=== PATIENT | female | born 1965 | race Caucasian/White ===

== ENCOUNTER 2020-03-21 08:40 | Outpatient (REF) | payer BC, SELFPAY ==
[2020-03-21 11:27] LABS: Hematocrit 38.2 % (37-47); Hemoglobin 12.5 g/dl (12.0-16.0); Mean Corpuscular HGB Conc 32.7 g/dl (31.0-35.0); Mean Corpuscular Volume 91.8 fL (80-98); Mean Platelet Volume 12.9 fL (9.4-12.3); Platelet Count 182 X10*3/uL (160-400); Red Blood Count 4.16 X10*6/uL (4.20-5.50); Red Cell Distribution Width 12.4 % (11.0-16.0); White Blood Count 4.1 X10*3/uL (4.8-10.8)
[2020-03-21 11:47] LABS: Alanine Aminotransferase 13 U/L (0-31); Albumin Level 4.3 g/dL (3.5-5.0); Alkaline Phosphatase 54 U/L (39-117); Anion Gap 12 (12-20); Aspartate Amino Transferase 18 U/L (5-31); Bilirubin Total 1.4 mg/dL (0.0-1.0); Blood Urea Nitrogen 13 mg/dL (9-16); Calcium 9.4 mg/dL (8.4-10.2); Carbon Dioxide 29 mmol/L (22-29); Chloride 103 mmol/L (96-108); Cholesterol 219 mg/dL; Estimated Glomerular Filt Rate > 60; Glucose Fasting 81 mg/dL (60-99); HDL Cholesterol 81 mg/dL; LDL Cholesterol Calculated 127 mg/dl; Potassium 4.2 mmol/l (3.3-5.1); Sodium 140 mmol/L (135-145); Total Protein 6.7 g/dL (6.5-8.0); Triglycerides 58 mg/dL
[2020-03-21 12:04] LABS: Thyroid Stimulating Hormone 2.25 mIU/mL (0.32-4.0)
[2020-03-22 18:51] LABS: Follicle Stimulating Hormone 109.7 mIU/mL
== END 2020-03-21 08:41 | disposition home or self-care (01) ==
LOC: HO.HMGCLDS 08:40
PROVIDERS: PCP Internal Medicine; Visit Provider Internal Medicine
DX: Z78.0 Asymptomatic menopausal state (principal); Z00.00 Encounter for general adult medical examination without abnormal findings; Z13.9 Encounter for screening, unspecified
CPT/HCPCS: 36415; 80053; 80061; 83001; 84443; 85027

== ENCOUNTER 2023-06-09 12:27 | Outpatient (AMB) | payer BC, SELFPAY ==
--- NOTE | 2023-06-09 12:46 | A.OFFPC_ITS ---
Vital Signs 06/09/23 12:47 Height 5 ft 3.5 in Weight 161 lb BMI 28.1 BP 110/70 Blood Pressure Location Rt brachial Position Sitting Pulse 72 Pulse Source Pulse Oximeter Pulse Oximetry (%) 97 Oxygen Delivery Method Room Air Intake Visit Reasons: Referral Intake Note: Pt is here today for a follow up visit. Pt states that she has been having headaches daily for about a month. Pt states that she had Covid and since then she has been getting headaches. Allergies No Known Allergies Allergy (Verified 06/09/23 12:54) Tobacco use date assessed: 06/09/23 Dental Screening Dental Screen Date: 06/09/23 Did you have a dental visit in the last 12 months?: Yes Did you have a dental problem in the last 6 months where you did not have access to dental care?: No Was dental information given to patient?: Patient has dentist HPI Referral HPI Details Patient presents for a physical. She complains of daily headaches for the last month frontal and both amish region are worse in the end of the day. Patient denies nausea vomiting change in vision weakness or numbness in extremities change in balance. She had normal exam 6 months ago. Patient will have a knee replacement surgery in July for advanced osteoarthritis. Patient has been under stress due to financial difficulty. Patient quited her job 2 years ago because of advanced arthritis and she worked outside for [employer]. 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 Patient has been on hormonal replacement for the last 6 months for symptomatic menopause. She has been taking Effexor for the last 9 months because emotional difficulties during the menopause. Patient denies depression or anxiety and her sleep difficulties improved on the hormonal replacement. [facility] Medical History (Updated 06/09/23 @ 13:31 by Eliza Swain MD) Menopause Annual physical exam Normal Pap smear Mammogram normal Normal colonoscopy Surgical History (Updated 03/19/20 @ 12:45 by GENA Quan, [facility]) History of arthroscopic knee surgery History of foot surgery Family History (Updated 06/09/23 @ 12:58 by GENA Fu) Father HTN (hypertension) Diabetes mellitus Mother No problems noted. Brother No problems noted. Sister No problems noted. Sister No problems noted. Daughter No problems noted. Social History (Updated 03/21/20 @ 08:12 by Katia Owens RN) Housing: House Patient Tobacco Use Status: Never used Tobacco e-Cigarette/Vaping Use: Never Used Current occupational status: unemployed Cognitive needs: No Hearing needs: No Vision needs: Yes Questionnaire PHQ-9 Over the last 2 weeks, how often have you been bothered by any of the following problems? 1. Little interest or pleasure in doing things: not at all 2. Feeling down, depressed, or hopeless: not at all 3. Trouble falling or staying asleep, or sleeping too much: several days 4. Feeling tired or having little energy: not at all 5. Poor appetite or overeating: not at all 6. Feeling bad about yourself - or that you are a failure or have let yourself or your family down: not at all 7. Trouble concentrating on things, such as reading the newspaper or watching television: not at all 8. Moving or speaking so slowly that other people could have noticed. Or the opposite - being so fidgety or restless that you have been moving around a lot more than usual: not at all 9. Thoughts that you would be better off or of hurting yourself in some way: not at all Total score: 1 Depression Screening Interpretation: Negative Depression Screening Done: Yes Source: Developed by Drs. Jose Garcia, Rhiannon Newsome, Loc Zafar and colleagues, with an educational zeke from [employer]. Thrive Questionnaire Date Thrive assessed: 06/09/23 I am a: Patient What is your living situation today?: I have a steady place to live Within the past 12 months, did the food you bought not last and you didn't have the money to get more?: Never true Within the past 12 months, did you worry whether your food would run out before you got money to buy more?: Never true Do you have trouble paying for medicines?: No Do you have trouble getting transportation to medical appointments?: No Do you have trouble paying your heating and electricity bill?: No Do you have trouble taking care of your child, family member or friend?: No Do you have trouble with day-to-day activities such as bathing, preparing meals, shopping, managing finances, etc.?: No Are you currently unemployed and looking for a job?: No Are you interested in more education?: No Please select the resources that you would like help with: None Currently or been in a relationship where the following occur: no concerns reported AUDIT C Alcohol Use Questionnaire (AUDIT-C) 1. How often do you have a drink containing alcohol?: 2-4 times a month 2. How many drinks containing alcohol do you have on a typical day when you are drinking?: 1 or 2 3. How often do you have six or more drinks on one occasion?: Never Total Score: 2 LESTER-7 AMB Questionnaire LESTER-7 Date LESTER - 7 assessed: 06/09/23 Feeling nervous, anxious, or on edge: 0 = Not at all Not being able to stop or control worryin = Several days Worrying too much about different things: 0 = Not at all Trouble relaxin = Not at all Being so restless that it is hard to sit still: 0 = Not at all Becoming easily annoyed or irritable: 0 = Not at all Feeling afraid as if something awful might happen: 0 = Not at all Total LESTER-7 score (0-4 normal; 5-9 mild; 10-14 moderate; 15-21 severe): 1 Source: Developed by Drs. Jose Garcia, Rhiannon Newsome, Loc Zafar and colleagues, with an educational zeke from [employer]. Review of Systems Const All systems reviewed & are unremarkable except as noted in HPI and below Reports no additional complaints Eyes Reports no additional complaints ENT Reports no additional complaints Card Reports no additional complaints Resp Reports no additional complaints GI Reports no additional complaints Reports no additional complaints Physical exam (Primary Care) Vital Signs: Last Vital Signs Pulse 72 06/09/23 12:47 BP 110/70 06/09/23 12:47 Pulse Ox 97 06/09/23 12:47 Oxygen Delivery Method Room Air 06/09/23 12:47 BMI result Body Mass Index 28.1 Tobacco/Smoking Status: Tobacco use Status Tobacco use date assessed 06/09/23 06/09/23 12:59 Patient Tobacco Use Status Never used Tobacco 06/09/23 12:59 e-Cigarette/Vaping Use Never Used 06/09/23 12:59 Depression Screening Interpretation: Negative Currently or been in a relationship where the following occur: no concerns r eported Const General: no acute distress HENMT Head: Yes normal to inspection Ears: hearing grossly normal bilaterally General nose exam: Normal external nose present Face and sinus: Yes normal facial exam Mouth: Normal oral and palatal mucosa present Throat: Yes posterior oropharynx normal Eyes General: appearance normal, both eyes and all related structures Neck Neck: Yes no lymphadenopathy and Yes supple Resp Effort & Inspection: normal respiratory effort Auscultation: clear to auscultation bilaterally Cardio Rhythm: regular rhythm Heart sounds: S1 normal heart sound present and S2 normal heart sound present GI Inspection: Yes normal to inspection Palpation (GI): Soft to palpation Percussion: Yes normal to percussion Auscultation: normal bowel sounds Neuro General: CN's II-XI intact bilaterally Gait exam (Neuro): Normal gait present Motor exam (neuro): 5/5 motor strength present throughout and Pronator motor function not present Coordination: [id number] test normal Romberg Test: Negative Assessment and Plan Assessment & Plan (1) New onset headache: Code(s): R51.9 - Headache, unspecified Plan: For new onset headache CT with IV contrast will be obtained to rule brain lesion, (2) Annual physical exam: Code(s): Z00.00 - Encounter for general adult medical examination without abnormal findings Plan: Stress management increasing physical activity with balanced diet discussed with the patient. She will have a fasting blood work today. Patient was advised to taper off Venlafaxine. She will have a and needs surgery last month and will follow-up in 2-3 months Orders: Orders Complete Blood Count Auto Diff Today R51.9 - Headache, unspecified, Z00.00 - Encounter for general adult medical examination without abnormal findings Lipid Panel Today R51.9 - Headache, unspecified, Z00.00 - Encounter for general adult medical examination without abnormal findings TSH reflex Free T4 Today R51.9 - Headache, unspecified, Z00.00 - Encounter for general adult medical examination without abnormal findings CT head/brain w IV con Today R51.9 - Headache, unspecified, Z00.00 - Encounter for general adult medical examination without abnormal findings Comprehensive [place]. Panel Fast Today R51.9 - Headache, unspecified, Z00.00 - Encounter for general adult medical examination without abnormal findings Vitamin D 25-OH Total Today R51.9 - Headache, unspecified, Z00.00 - Encounter for general adult medical examination without abnormal findings Coding Level of Care Code Est Pt Prev Care 40-64y(51046) Diagnoses New onset headache R51.9 Annual physical exam Z00.00
[2023-06-09 12:47] VITALS: BP 110/70; PULSE 72; O2SAT 97; BMI 28.1
== END 2023-06-09 13:37 | disposition home or self-care (01) ==
PROVIDERS: PCP Internal Medicine; Visit Provider Internal Medicine
DX: R51.9 Headache, unspecified (principal); Z00.00 Encounter for general adult medical examination without abnormal findings
CPT/HCPCS: 99396

== ENCOUNTER 2023-06-09 13:38 | Outpatient (REF) | payer BC, SELFPAY ==
[2023-06-09 16:12] LABS: Hematocrit 37.5 % (37.0-47.0); Hemoglobin 12.2 g/dl (12.0-16.0); Mean Corpuscular HGB Conc 32.5 g/dl (31.0-35.0); Mean Corpuscular Hemoglobin 29.8 pg (27.0-33.0); Mean Corpuscular Volume 91.5 fL (80.0-98.0); Mean Platelet Volume 12.5 fL (9.4-12.3); Platelet Count 154 X10*3/uL (160-400); Red Cell Distribution Width 13.1 % (11.0-16.0); White Blood Count 4.9 X10*3/uL (4.8-10.8)
[2023-06-09 16:32] LABS: Alanine Aminotransferase 152 U/L (0-31); Albumin Level 4.1 g/dL (3.5-5.0); Alkaline Phosphatase 116 U/L (39-117); Anion Gap 12 (12-20); Aspartate Amino Transferase 129 U/L (5-31); Bilirubin Total 1.1 mg/dL (0.0-1.0); Blood Urea Nitrogen 8 mg/dL (9-16); Calcium 9.4 mg/dL (8.4-10.2); Carbon Dioxide 28 mmol/L (22-29); Chloride 104 mmol/L (96-108); Cholesterol 188 mg/dL (<200); Estimated Glomerular Filt Rate > 60; Glucose Fasting 80 mg/dL (60-99); HDL Cholesterol 52 mg/dL (>40); LDL Cholesterol Calculated 117 mg/dL (<100); Potassium 3.6 mmol/L (3.3-5.1); Sodium 140 mmol/L (135-145); Total Protein 7.2 g/dL (6.5-8.0); Triglycerides 99 mg/dL (<150)
[2023-06-09 16:48] LABS: TSH reflex Free T4 1.47 uIU/mL (0.32-4.0); Vitamin D 25-OH Total 59.1 ng/mL (>30)
[2023-06-09 17:19] LABS: Atypical Lymph Absolute Manual 1.3 x10*3/uL; Atypical Lymphs Percent Manual 26 % (0-6); Lymphocytes Absolute Manual 1.6 X10*3/uL (1.2-4.9); Lymphocytes Percent Manual 33 % (20-40); Monocytes Absolute Manual 0.1 X10*3/uL (0.1-1.2); Monocytes Percent Manual 3 % (2-11); Neutrophils Percent Manual 38 % (45-73)
[2023-06-09 17:21] LABS: RBC Morphology NORMAL; Toxic Vacuolation PRESENT
[2023-06-09 17:22] LABS: Band Neutrophils Percent 0 % (3-5); Dohle Bodies PRESENT; Neutrophils Absolute Manual 1.9 X10*3/uL (2.0-8.3); Platelet Estimate NORMAL (NORMAL); Platelet Morphology Comment NORMAL
== END 2023-06-09 13:39 | disposition home or self-care (01) ==
LOC: HO.HMGCLDS 13:38
PROVIDERS: PCP Internal Medicine; Visit Provider Internal Medicine
DX: Z00.00 Encounter for general adult medical examination without abnormal findings (principal); R51.9 Headache, unspecified
CPT/HCPCS: 36415; 80053; 80061; 82306; 84443; 85007; 85025; 85027

== ENCOUNTER 2023-07-02 07:25 | Outpatient (REF) | payer BC, SELFPAY ==
--- NOTE | ~2023-07-02 | US_ITS ---
EXAMINATION: US ABDOMEN COMPLETE CLINICAL INFORMATION: Other specified abnormal findings of blood chemistry. COMPARISON: None available. TECHNIQUE: Real-time imaging of the abdominal viscera. FINDINGS: PANCREAS: Tail obscured. ABDOMINAL AORTA: The proximal, mid, and distal segments are normal in caliber. INFERIOR VENA CAVA: Visualized portions are normal. LIVER: The liver is normal in size. The liver contour is normal. Parenchymal echogenicity is normal. No focal hepatic lesion. There is no intrahepatic biliary duct dilatation seen. GALLBLADDER: The gallbladder is physiologically distended without evidence of stones, sludge, polyps, wall thickening or pericholecystic fluid. COMMON BILE DUCT: Normal in caliber measuring 0.2 cm in diameter. RIGHT KIDNEY: No hydronephrosis. No renal calculi or focal parenchymal lesions. The kidney measures 10.3 cm in maximum dimension. LEFT KIDNEY: No hydronephrosis. No renal calculi or focal parenchymal lesions. The kidney measures 10.3 cm in maximum dimension. SPLEEN: The spleen measures 8.9 cm in maximum dimension. FREE FLUID: None. US/US abdomen complete IMPRESSION: Unremarkable abdominal ultrasound.
--- NOTE | ~2023-07-02 | CT_ITS ---
CT HEAD WITH CONTRAST CLINICAL INFORMATION: Headache. COMPARISON: None available. TECHNIQUE: Contiguous axial imaging was performed from the skull base to vertex following the administration of 85 mL of Omnipaque [address] examination was performed using dose optimization techniques as appropriate, variously including the following: *Automated exposure control *Adjustment of mA and/or kV according to patient size (this includes techniques or standardized protocols for targeted exams where dose is matched to indication/reason for exam; i.e. extremities or head) *Use of iterative reconstruction technique FINDINGS: No pathologic enhancement intracranially. There is no intracranial hemorrhage, hydrocephalus, extra-axial surface collection, midline shift, or other herniation pattern. Donato to white matter differentiation is diffusely maintained without evidence of an evolved acute territorial infarct. The basilar cisterns are preserved. No significant soft tissue abnormality. No acute osseous abnormality. The paranasal sinuses and the mastoid air cells are well aerated. CT/CT head/brain w IV con IMPRESSION: No acute intracranial findings. No pathologic enhancement intracranially.
[2023-07-02] MEDS: iohexoL 350 MG/ML 75 ML INFUS..BTL 85 ML IV (08:18)
== END 2023-07-02 07:26 | disposition home or self-care (01) ==
LOC: HO.CT 07:25
PROVIDERS: PCP Internal Medicine; Visit Provider Internal Medicine
DX: Z00.00 Encounter for general adult medical examination without abnormal findings (principal); R51.9 Headache, unspecified; R79.89 Other specified abnormal findings of blood chemistry
CPT/HCPCS: 70460; 76700; Q9967

== ENCOUNTER 2023-09-15 12:24 | Outpatient (AMB) | payer BC, SELFPAY ==
[2023-09-15 12:56] VITALS: BP 102/66; PULSE 76; O2SAT 97; BMI 27.1
--- NOTE | 2023-09-15 12:56 | A.OFFPC_ITS ---
Vital Signs 09/15/23 12:56 Height 5 ft 4 in Weight 158 lb BMI 27.1 BP 102/66 Blood Pressure Location Rt brachial Position Sitting Pulse 76 Pulse Source Pulse Oximeter Pulse Oximetry (%) 97 Oxygen Delivery Method Room Air Intake Visit Reasons: 2 Month F/U Intake Note: Pt is here today for 2 months follow up visit. Allergies No Known Allergies Allergy (Verified 09/15/23 12:58) Medication List - Last Reconciled 09/15/23 by Eliza Swain MD estradiol patches transdermal progesterone micronized 100 mg PO BEDTIME venlafaxine ER 37.5 mg PO DAILY Tobacco use date assessed: 09/15/23 Dental Screening Dental Screen Date: 06/09/23 HPI 2 Month F/U HPI Details Patient presents for the follow-up. She had a left knee replacement surgery 10 days ago and has been in physical therapy. Her daily headaches resolved. [facility] Medical History Menopause Annual physical exam Normal Pap smear Mammogram normal Normal colonoscopy Surgical History History of arthroscopic knee surgery History of foot surgery Family History Father HTN (hypertension) Diabetes mellitus Mother No problems noted. Brother No problems noted. Sister No problems noted. Sister No problems noted. Daughter No problems noted. Social History Housing: House Patient Tobacco Use Status: Never used Tobacco e-Cigarette/Vaping Use: Never Used Current occupational status: unemployed Cognitive needs: No Hearing needs: No Vision needs: Yes Questionnaire Thrive Questionnaire Date Thrive assessed: 06/09/23 LESTER-7 AMB Questionnaire LESTER-7 Date LESTER - 7 assessed: 06/09/23 Source: Developed by Drs. Jose Garcia, Rhiannon Newsome, Loc Zafar and colleagues, with an educational zeke from [employer]. Review of Systems Const All systems reviewed & are unremarkable except as noted in HPI and below Reports no additional complaints ENT Reports no additional complaints Card Reports no additional complaints Resp Reports no additional complaints GI Reports no additional complaints Reports no additional complaints Physical exam (Primary Care) Vital Signs: Last Vital Signs Pulse 76 09/15/23 12:56 BP 102/66 09/15/23 12:56 Pulse Ox 97 09/15/23 12:56 Oxygen Delivery Method Room Air 09/15/23 12:56 BMI result Body Mass Index 27.1 Tobacco/Smoking Status: Tobacco use Status Tobacco use date assessed 09/15/23 09/15/23 13:01 Patient Tobacco Use Status Never used Tobacco 09/15/23 12:56 e-Cigarette/Vaping Use Never Used 09/15/23 12:56 Thrive Assessment: Date of Thrive Assessment Date Thrive assessed 06/09/23 09/15/23 12:56 Const General: no acute distress HENMT Head: Yes normal to inspection Throat: Yes posterior oropharynx normal Resp Effort & Inspection: normal respiratory effort Auscultation: clear to auscultation bilaterally Cardio Rhythm: regular rhythm Heart sounds: S1 normal heart sound present and S2 normal heart sound present GI Inspection: Yes normal to inspection Assessment and Plan Assessment & Plan (1) Elevated LFTs: Code(s): R7 - Other specified abnormal findings of blood chemistry Plan: Patient will return in 2 months for repeated blood work and hepatitis screen for history of elevated LFTs (2) Hx of left knee surgery: Comment: replacement 09/21 Code(s): Z98.890 - Other specified postprocedural states Plan: Continue PT follow-up with ortho Orders: Orders Complete Blood Count Auto Diff 2 Months - Other specified abnormal findings of blood chemistry Lipid Panel 2 Months - Other specified abnormal findings of blood chemistry Hepatitis B,C Profile 2 Months - Other specified abnormal findings of blood chemistry Mitochondrial Antibody 2 Months - Other specified abnormal findings of blood chemistry Comprehensive [place]. Panel Fast 2 Months - Other specified abnormal findings of blood chemistry WILLIAM Reflex Titer and Pattern 2 Months - Other specified abnormal findings of blood chemistry Coding Level of Care Code Est Pt Level 3 (98275) Diagnoses Elevated LFTs Hx of left knee surgery Z98.890
== END 2023-09-15 13:30 | disposition home or self-care (01) ==
PROVIDERS: PCP Internal Medicine; Visit Provider Internal Medicine
DX: R79.89 Other specified abnormal findings of blood chemistry (principal); Z98.890 Other specified postprocedural states
CPT/HCPCS: 99213

== ENCOUNTER 2023-11-02 09:00 | Outpatient (RCR) | payer BC, SELFPAY | END 2024-03-08 14:27 | disposition home or self-care (01) | LOC: HO.PTCHIC 09:00 | PROVIDERS: PCP Internal Medicine; Visit Provider Nurse Practitioner Family | DX: Z98.890 Other specified postprocedural states (principal) | CPT/HCPCS: 97110; 97112; 97116; 97140; 97162; 97530 ==

== ENCOUNTER 2025-02-06 06:42 | Outpatient (REF) | payer BC, SELFPAY ==
[2025-02-06 10:08] LABS: MANUAL DIFF FLAG NO
[2025-02-06 10:13] LABS: Hematocrit 35.5 % (37.0-47.0); Hemoglobin 11.5 g/dl (12.0-16.0); Imm Gran Abs Auto 0.01 X10*3/uL (0.00-0.03); Imm Gran Pct Auto 0.3 % (0.0-0.4); Lymphocytes Absolute Auto 1.6 X10*3/uL (1.2-4.9); Mean Corpuscular HGB Conc 32.4 g/dl (31.0-35.0); Mean Corpuscular Hemoglobin 29.8 pg (27.0-33.0); Mean Corpuscular Volume 92.0 fL (80.0-98.0); NRBC Abs Auto 0.000 X10*3/uL (0.0-0.012); NRBC Pct Auto 0.0 /100WBC (0.0-0.2); Platelet Count 159 X10*3/uL (160-400); Red Blood Count 3.86 X10*6/uL (4.20-5.50); White Blood Count 3.8 X10*3/uL (4.8-10.8)
[2025-02-06 10:13] LABS: Appearance Urine Clear; Glucose Urine UA Negative (Negative); PH 6.0 (5.0-9.0); Specific Gravity - Urine 1.010 (1.005-1.025)
[2025-02-06 10:36] LABS: Alanine Aminotransferase 17 U/L (0-31); Albumin Level 4.1 g/dL (3.5-5.0); Alkaline Phosphatase 51 U/L (39-117); Anion Gap 12 (12-20); Aspartate Amino Transferase 25 U/L (5-31); Blood Urea Nitrogen 11 mg/dL (9-16); Calcium 8.9 mg/dL (8.4-10.2); Carbon Dioxide 24 mmol/L (22-29); Chloride 111 mmol/L (96-108); Cholesterol 195 mg/dL (<200); Estimated Glomerular Filt Rate > 60; HDL Cholesterol 60 mg/dL (>40); Potassium 3.8 mmol/L (3.3-5.1); Sodium 143 mmol/L (135-145); Total Protein 6.4 g/dL (6.5-8.0); Triglycerides 66 mg/dL (<150)
== END 2025-02-06 06:43 | disposition home or self-care (01) ==
LOC: HO.HMGCLDS 06:42
PROVIDERS: PCP Internal Medicine; Visit Provider Internal Medicine
DX: Z00.00 Encounter for general adult medical examination without abnormal findings (principal); Z13.6 Encounter for screening for cardiovascular disorders
CPT/HCPCS: 36415; 80053; 80061; 81001; 82306; 85025

== ENCOUNTER 2025-02-07 10:44 | Outpatient (AMB) | payer BC, SELFPAY ==
[2025-02-07 10:45] VITALS: BP 100/62; PULSE 78; RESP 18; TEMP 36.6; O2SAT 97; BMI 26.3
--- NOTE | 2025-02-07 10:45 | A.OFFPC_ITS ---
Vital Signs 02/07/25 10:45 Height 5 ft 4 in Weight 153 lb BMI 26.3 BP 100/62 Blood Pressure Location Lt brachial Position Sitting Respiration 18 Pulse 78 Pulse Source Pulse Oximeter Temp 97.9 F Temp Source Oral Pulse Oximetry (%) 97 Oxygen Delivery Method Room Air Intake Visit Reasons: Annual PE Intake Note: Pt is here today for PE. Allergies No Known Allergies Allergy (Verified 02/07/25 10:48) Medication List - Last Reconciled 02/07/25 by Eliza Swain MD estradiol 1 patch transdermal 2XW progesterone micronized 100 mg PO BEDTIME Tobacco use date assessed: 02/07/25 Dental Screening Dental Screen Date: 02/07/25 Did you have a dental visit in the last 12 months?: Yes Did you have a dental problem in the last 6 months where you did not have access to dental care?: No Was dental information given to patient?: Patient has dentist HPI Annual PE HPI Details Pt presents for PE. Patient reports persistent hot flashes and insomnia on and off despite taking 0.025 estradiol patches. FORMERLY [facility], [facility]–1983 Medical History (Updated 02/07/25 @ 11:32 by Eliza Swain MD) Menopause Annual physical exam Normal Pap smear Mammogram normal Normal colonoscopy Surgical History History of arthroscopic knee surgery History of foot surgery Family History Father HTN (hypertension) Diabetes mellitus Mother No problems noted. Brother No problems noted. Sister No problems noted. Sister No problems noted. Daughter No problems noted. Social History Housing: House Patient Tobacco Use Status: Never used Tobacco e-Cigarette/Vaping Use: Never Used service: No Current occupational status: unemployed Cognitive needs: No Hearing needs: No Vision needs: Yes Questionnaire PHQ-9 Over the last 2 weeks, how often have you been bothered by any of the following problems? 1. Little interest or pleasure in doing things: not at all 2. Feeling down, depressed, or hopeless: not at all 3. Trouble falling or staying asleep, or sleeping too much: more than half the days 4. Feeling tired or having little energy: not at all 5. Poor appetite or overeating: not at all 6. Feeling bad about yourself - or that you are a failure or have let yourself or your family down: not at all 7. Trouble concentrating on things, such as reading the newspaper or watching television: not at all 8. Moving or speaking so slowly that other people could have noticed. Or the opposite - being so fidgety or restless that you have been moving around a lot more than usual: not at all 9. Thoughts that you would be better off or of hurting yourself in some way: not at all Total score: 2 Depression Screening Interpretation: Negative Depression Screening Done: Yes Source: Developed by Drs. Jose Garcia, Rhiannon Newsome, Loc Zafar and colleagues, with an educational zeke from [employer]. Thrive Questionnaire Date Thrive assessed: 06/09/23 I am a: Patient What is your living situation today?: I have a steady place to live Within the past 12 months, did the food you bought not last and you didn't have the money to get more?: Never true Within the past 12 months, did you worry whether your food would run out before you got money to buy more?: Never true Do you have trouble paying for medicines?: No Do you have trouble getting transportation to medical appointments?: No Do you have trouble paying your heating and electricity bill?: No Do you have trouble taking care of your child, family member or friend?: No Do you have trouble with day-to-day activities such as bathing, preparing meals, shopping, managing finances, etc.?: No Are you currently unemployed and looking for a job?: No Are you interested in more education?: No Please select the resources that you would like help with: None Currently or been in a relationship where the following occur: No concerns reported THRIVE Score: 0 AUDIT C Alcohol Use Questionnaire (AUDIT-C) 1. How often do you have a drink containing alcohol?: 2-4 times a month 2. How many drinks containing alcohol do you have on a typical day when you are drinking?: 1 or 2 3. How often do you have six or more drinks on one occasion?: Never Total Score: 2 LESTER-7 AMB Questionnaire LESTER-7 Date LESTER - 7 assessed: 06/09/23 Feeling nervous, anxious, or on edge: 0 = Not at all Not being able to stop or control worryin = Not at all Worrying too much about different things: 0 = Not at all Trouble relaxin = Not at all Being so restless that it is hard to sit still: 0 = Not at all Becoming easily annoyed or irritable: 0 = Not at all Feeling afraid as if something awful might happen: 0 = Not at all Total LESTER-7 score (0-4 normal; 5-9 mild; 10-14 moderate; 15-21 severe): 0 Source: Developed by Drs. Jose Garcia, Rhiannon Newsome, Loc Zafar and colleagues, with an educational zeke from [employer]. Review of Systems Const All systems reviewed & are unremarkable except as noted in HPI and below Eyes Reports no additional complaints ENT Reports no additional complaints Card Reports no additional complaints Resp Reports no additional complaints GI Reports no additional complaints Reports no additional complaints Physical exam (Primary Care) Vital Signs: Last Vital Signs Temp 97.9 F 02/07/25 10:45 Pulse 78 02/07/25 10:45 Resp 18 02/07/25 10:45 BP 100/62 02/07/25 10:45 Pulse Ox 97 02/07/25 10:45 Oxygen Delivery Method Room Air 02/07/25 10:45 BMI result Body Mass Index 26.3 Tobacco/Smoking Status: Tobacco use Status Tobacco use date assessed 02/07/25 02/07/25 10:52 Patient Tobacco Use Status Never used Tobacco 02/07/25 10:45 e-Cigarette/Vaping Use Never Used 02/07/25 10:45 PHQ-9: PHQ-9 Score PHQ-9: Total score 2 02/07/25 10:45 Depression Screening Interpretation: Negative Thrive Assessment: Date of Thrive Assessment Date Thrive assessed 06/09/23 02/07/25 10:45 Currently or been in a relationship where the following occur: No concerns reported Const General: no acute distress HENMT Head: Yes normal to inspection Ears: hearing grossly normal bilaterally Mouth: Normal oral and palatal mucosa present Eyes General: appearance normal, both eyes and all related structures Neck Neck: Yes no lymphadenopathy and Yes supple Resp Effort & Inspection: normal respiratory effort Auscultation: clear to auscultation bilaterally Cardio Rhythm: regular rhythm Heart sounds: S1 normal heart sound present and S2 normal heart sound present GI Inspection: Yes normal to inspection Palpation (GI): Soft to palpation Percussion: Yes normal to percussion Auscultation: normal bowel sounds Coding Level of Care Code Est Pt Prev Care 40-64y(54109) Diagnoses Anemia D64.9 Mammogram normal Annual physical exam Z00.00 Menopause Z78.0 Assessment & Plan Assessment & Plan (1) Anemia: Code(s): D64.9 - Anemia, unspecified Category: Medical Plan: Check iron studies and B12 level, recheck CBC in 1 month (2) Mammogram normal: Comment: [facility] 2024 Category: Medical Plan: Up-to-date with mammogram (3) Annual physical exam: Code(s): Z00.00 - Encounter for general adult medical examination without abnormal findings Category: Medical Plan: Well-balanced diet regular physical activity discussed with the patient. She is up-to-date with the mammogram and colonoscopy. (4) Menopause: Code(s): Z78.0 - Asymptomatic menopausal state Category: Medical Plan: For menopausal symptoms estradiol will be increased to 0.05 mg patches. 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 Orders: Orders Vitamin B12 and Folate Today D64.9 - Anemia, unspecified Haptoglobin Today D64.9 - Anemia, unspecified Lactate Dehydrogenase Today D64.9 - Anemia, unspecified TSH reflex Free T4 Today D64.9 - Anemia, unspecified Complete Blood Count Auto Diff 1 Month D64.9 - Anemia, unspecified Lipid Panel 1 Year D64.9 - Anemia, unspecified, Z00.00 - Encounter for general adult medical examination without abnormal findings UA w Microscopic 1 Year D64.9 - Anemia, unspecified, Z00.00 - Encounter for general adult medical examination without abnormal findings IRON PROFILE Today D64.9 - Anemia, unspecified Reticulocyte Count Today D64.9 - Anemia, unspecified Immunofixation Pnl, Serum Today D64.9 - Anemia, unspecified Complete Blood Count Auto Diff 1 Year D64.9 - Anemia, unspecified, Z00.00 - Encounter for general adult medical examination without abnormal findings Comprehensive [place]. Panel Fast 1 Year D64.9 - Anemia, unspecified, Z00.00 - Encounter for general adult medical examination without abnormal findings TSH reflex Free T4 1 Year D64.9 - Anemia, unspecified, Z00.00 - Encounter for general adult medical examination without abnormal findings Vitamin D 25-OH Total 1 Year D64.9 - Anemia, unspecified, Z00.00 - Encounter for general adult medical examination without abnormal findings Medications: New estradiol (Roya) apply 1 patch for 3 days alternating with 1 patch for 4 days each week for 3 wks per 4-wk cycle 1 patch transdermal 2XW 8 ea 2RF
== END 2025-02-07 11:38 | disposition home or self-care (01) ==
LOC: HO.HMCC 10:45
PROVIDERS: PCP Internal Medicine; Visit Provider Internal Medicine
DX: D64.9 Anemia, unspecified (principal); Z00.00 Encounter for general adult medical examination without abnormal findings; Z78.0 Asymptomatic menopausal state

== ENCOUNTER 2025-02-07 10:44 | Outpatient (REF) | payer BC, SELFPAY ==
[2025-02-07 13:55] LABS: Reticulocytes Absolute 0.056 X10*6/uL (0.026-0.095)
[2025-02-07 14:44] LABS: Iron 87 mcg/dL (30-160); Percent Iron Saturation 31 % (15-50); Total Iron Binding Capacity 277 mcg/dL (228-428); Unsaturated Iron Binding 190 ug/dL
[2025-02-07 14:59] LABS: Folate 12.6 ng/mL (> or = 4.0); Vitamin B12 357 pg/mL (200-900)
== END 2025-02-07 10:45 | disposition home or self-care (01) ==
LOC: HO.HMGCLDS 10:44
PROVIDERS: PCP Internal Medicine; Visit Provider Internal Medicine
DX: Z00.00 Encounter for general adult medical examination without abnormal findings (principal); D64.9 Anemia, unspecified; Z78.0 Asymptomatic menopausal state
CPT/HCPCS: 36415; 82607; 82746; 82784; 83010; 83540; 83615; 84443; 85045; 86334; 96127